=== PATIENT | male | born 1960 | race Caucasian/White ===

== ENCOUNTER → 2020-03-11 09:03 | Outpatient (CLI) | payer OTHER, SELFPAY ==
[2020-03-11 10:01] LABS: COVID19 -Nasal RAPID Negative (Negative)
== END ==
PROVIDERS: Visit Provider Physician Assistant
DX: Z20.822 Contact with and (suspected) exposure to COVID-19 (principal)
CPT/HCPCS: 87635

== ENCOUNTER 2020-03-13 11:23 | Day surgery (SDC) | payer OTHER, SELFPAY ==
--- NOTE | 2020-03-13 | PATH_ITS ---
[facility] Accession Number: [id number] . 01 Material submitted: . PART A: colon - ASCENDING COLON POLYP PART B: colon - TRANSVERSE COLON POLYP PART C: sigmoid colon - SIGMOID COLON POLYP . 02 Diagnosis: A. Ascending Colon Polyp: Tubular adenoma. . B. Transverse Colon Polyp: Tubular adenoma. . C. Sigmoid Colon Polyp: Portions of hyperplastic polyp x2. MRV 03/15/2020 1039 Local . 02 Electronically signed: . Dede Baez MD, Pathologist NPI- [id number] . 01 Gross description: . Part A: ASCENDING COLON POLYP: Received in formalin is 1 fragment(s) of beth, soft tissue measuring 0.3 x 0.3 x 0.3 cm submitted entirely in 1 cassette(s) Part B: TRANSVERSE COLON POLYP: Received in formalin is 1 fragment(s) of beth, soft tissue measuring 0.3 x 0.3 x 0.2 cm submitted entirely in 1 cassette(s) Part C: SIGMOID COLON POLYP: Received in formalin are 2 fragment(s) of beth, soft tissue measuring 0.2 x 0.2 x 0.1 cm to 0.5 x 0.3 x 0.2 cm submitted entirely in 1 cassette(s) /KUNAL 03/14/2020 1852 Local . 02 Pathologist provided ICD-10: K63.5, Z12.11 . 02 CPT . 363107, 991139, 938593 Performed at: 01 [facility] [address] [id number] MD Marcelo Person MD Phone: [phone] [facility]formed at: [facility] [address] [place], [place] [id number] MD Michelle Nolan MD Phone: [phone]
[2020-03-13] MEDS: SODIUM CHLORIDE 0.9% 1,000 ML 70 ML IV (11:55)
[2020-03-13 11:57] VITALS: BP 166/96; PULSE 71; RESP 16; TEMP 36.4; O2SAT 100; BMI 21.8
[2020-03-13 12:06] VITALS: BP 145/93
--- NOTE | 2020-03-13 12:12 | PM.HP.1 ---
History of Present Illness History of Present Illness Date Patient Seen: 03/13/20 Time Patient Seen: 12:10 Chief complaint: SDC Narrative: Patient is a very pleasant 59-year-old male who presented for screening colonoscopy. His last colonoscopy was attempted at age 49 in he states he was unable to have a completed at that time. He did undergo a barium enema study. Patient History Medical History (Updated 03/13/20 @ 11:17 by Taylor Alas RN) Diabetes [place] on CPAP Family & Social History Social History: household members spouse Tobacco & Substance use: Smoking Status Never smoker alcohol intake current alcohol intake frequency a few times a month Substance Use Type does not use Meds Home Medications and Allergies Home Medications Medication Instructions Recorded Confirmed Type aspirin 81 mg PO DAILY 03/13/20 03/13/20 History dulaglutide [Trulicity] mg SUBCUT WEEKLY 03/13/20 History glimepiride 4 mg PO DAILY 03/13/20 03/13/20 History loratadine 10 mg PO DAILY 03/13/20 03/13/20 History losartan 25 mg PO DAILY 03/13/20 03/13/20 History metformin 500 mg PO DAILY 03/13/20 03/13/20 History Allergies Allergy/AdvReac Type Severity Reaction Status Date / Time No Known Drug Allergies Allergy Verified 03/13/20 11:39 Review of Systems Review of Systems ROS: Yes All systems reviewed with the patient and are negative except as otherwise documented Exam Vital Signs (past 8 hours): - 03/13/20 11:57 03/13/20 12:06 Temperature 97.6 F Pulse Rate 71 Respiratory Rate 16 Blood Pressure 166/96 H 145/93 H Pulse Oximetry 100 Oxygen Delivery Method Room Air Const General: cooperative, healthy appearing, comfortable and well developed Nutritional Appearance: well nourished Orientation: alert, awake and oriented x3 HENMT Head: normocephalic and atraumatic Resp Effort & Inspection: normal respiratory effort, able to speak in complete sentences and abnormal respiratory pattern Auscultation: clear to auscultation bilaterally Cardio Rate: regular rate Rhythm: regular rhythm Heart Sounds: S1 normal and S2 normal GI Palpation: soft Auscultation: normal bowel sounds Extrem Right lower extremity: no edema Left lower extremity: no edema Assessment & Plan Assessment & Plan narrative: 1. Screening colonoscopy with history of prior incomplete colonoscopy Colonoscopy today, further recommendations to follow
[2020-03-13] MEDS: MIDAZOLAM 5 MG/5 ML VIAL IV (12:29)
[2020-03-13] MEDS: fentaNYL 250 MCG/5 ML INJ IV (12:33)
[2020-03-13 12:52] VITALS: BP 131/76; PULSE 70; RESP 18; TEMP 36.3; O2SAT 95
--- NOTE | 2020-03-13 12:53 | P.OP.ENDO_ITS ---
Operative Date/Time/Diagnoses Date of procedure: 03/13/20 Time of procedure: 12:21 Procedure Notes Procedure in detail: Surgeon: Francheska Olvera DO Procedure: Colonoscopy with polypectomy Preoperative diagnosis: 1. Screening colonoscopy, history of incomplete colonoscopy Postoperative diagnosis: 1. Redundant colon 2. 3mm Ascending colon polyp 3. 2 mm transverse colon 4. 3 mm sigmoid colon 5. Scattered sigmoid diverticulosis 6. Grade 1 internal hemorrhoids Medications: Conscious sedation using 7 mg IV of Midazolam and 175 mcg IV of Fentanyl Preanesthesia Assessment An H and P was performed/updated and the Px?s ASA class is 2. The procedure was discussed in detail with the patient. The potential risks and complications including infection, bleeding, missed lesions, perforation, need for surgery in case of perforation, prolonged hospital stay, and were explained. A brief question and answer period was allotted and once all questions were answered, informed consent was obtained. The patient was brought back to the procedure room and placed on standard monitoring. The patient?s vital signs were monitored continuously throughout the entire procedure. Prior to starting, a timeout was performed to confirm the patient?s identity, allergies, medications, and procedure. Procedure in detail The patient was placed in left lateral decubitus position and once adequate sedation was obtained a ALLAN was performed. The digital rectal examination did not reveal any palpable lesions. The tip of the colonoscope was placed in the anal canal and advanced with some difficulty due to a redundant colon. Abdominal pressure was used to achieve passage all the way to the cecum which was identified by the appendiceal orifice and the ileocecal valve. Careful examination of all romero of the colon was performed with irrigation of any resi dual stool. A 2nd pass of the ascending colon was performed. 3 mm ascending colon polyp, removed with Jumbo forceps 2 mm transverse colon polyp removed with Jumbo forceps 3 mm sigmoid colon polyp removed with Jumbo forceps Scattered sigmoid diverticulosis Redundant colon Grade 1 internal hemorrhoids noted on retroflexion The patient tolerated the procedure well and will be brought back to the [facility] area to be discharged once criteria are met. The prep was judged to be good/excellent and adequate to identify polyps less than 6 mm. The withdrawal time was 11min. The total physician intraservice time was 25min. Complications There were no complications and estimated blood loss was minimal. Recommendations: Resume high-fiber diet Continue outPx medications Await pathology results Repeat colonoscopy based on pathology results An emergency contact number was given to the patient for any complications related to the procedure
[2020-03-13 12:57] VITALS: BP 119/71; PULSE 81; RESP 13; O2SAT 94
[2020-03-13 13:03] VITALS: BP 135/81; PULSE 70; RESP 17; TEMP 36.7; O2SAT 95
--- NOTE | 2020-03-13 13:08 | SUR.PHASEII ---
report to JOSH Breaux. Pt in stable condition in phase 2
[2020-03-13 13:29] VITALS: BP 117/78; PULSE 71; RESP 15; TEMP 36.1; O2SAT 98
== END 2020-03-13 13:33 | disposition home or self-care (01) ==
PROVIDERS: PCP Family Medicine; Referring Provider Student in an Organized Health Care Education/Training Program; Visit Provider Student in an Organized Health Care Education/Training Program
PROC: 0DJD8ZZ Inspection of Lower Intestinal Tract, Via Natural or Artificial Opening Endoscopic (ICD-10-PCS; CPT 45378; principal; 2020-03-13 12:30)
DX: Z12.11 Encounter for screening for malignant neoplasm of colon (principal); K57.30 Diverticulosis of large intestine without perforation or abscess without bleeding; K64.0 First degree hemorrhoids; D12.2 Benign neoplasm of ascending colon; D12.3 Benign neoplasm of transverse colon
CPT/HCPCS: 45380; J2250; J3010

== ENCOUNTER → 2023-03-09 14:49 | Outpatient (CLI) | payer OTHER, SELFPAY ==
[2023-03-09 17:14] LABS: Add Manual Diff / Slide Review NO; Basophils Absolute Auto 0 /uL (0-100); Basophils Percent Auto 0.5 % (0-2); Eosinophils Absolute Auto 200 /uL (0-450); Eosinophils Percent Auto 3.5 % (2-4); Hematocrit 48.8 % (41-53); Lymphocytes Absolute Auto 2000 /uL (1100-4500); Lymphocytes Percent Auto 29.6 % (25-40); Mean Corpuscular HGB Conc 34.9 % (30-36); Mean Corpuscular Hemoglobin 31.5 PG (26-34); Mean Corpuscular Volume 90.4 fL (80-100); Monocytes Absolute Auto 500 /uL (0-900); Monocytes Percent Auto 7.7 % (3-14); Neutrophils Absolute Auto 4000 /uL (1500-7000); Neutrophils Percent Auto 58.7 % (50-75); Platelet Count 205 X10^3/uL (150-400); Red Blood Cell Count 5.39 X10^6/uL (4.5-5.9); Red Cell Distribution Width 13.4 % (11.6-14.8); White Blood Cell Count 6.8 X10^3/uL (4.5-11.0)
[2023-03-09 17:23] LABS: Hemoglobin A1C% w Est Avg Glu 7.2 % (4.0-6.0)
[2023-03-09 17:33] LABS: Albumin 4.7 g/dL (3.5-5.0); BUN Creatinine Ratio 21.6 (6-22); Blood Urea Nitrogen 16 mg/dL (9-20); Calcium 10.3 mg/dL (8.4-10.2); Carbon Dioxide 24 mmol/L (22-32); Chloride 101 mmol/L (98-107); Estimated Glomerular Filt Rate > 60 mL/min (>60); Glucose 98 mg/dL (80-110); HEMOLYSIS < 15 (0-50); Potassium 4.1 mmol/L (3.4-5.1); Sodium 137 mmol/L (137-145)
[2023-03-09 17:40] LABS: Prealbumin 34.4 mg/dL (17.6-36.0)
[2023-03-09 17:50] LABS: Vitamin D 25 Hydroxy (D3) 53.6 ng/mL (30.0-100.0)
[2023-03-11 03:14] LABS: Fructosamine 278 umol/L (0-285)
== END ==
PROVIDERS: PCP Family Medicine; Referring Provider Orthopaedic Surgery Adult Reconstructive Orthopaedic Surgery; Visit Provider Orthopaedic Surgery Adult Reconstructive Orthopaedic Surgery
DX: Z01.818 Encounter for other preprocedural examination (principal); R77.0 Abnormality of albumin; E55.9 Vitamin D deficiency, unspecified; Z01.812 Encounter for preprocedural laboratory examination; R73.9 Hyperglycemia, unspecified; E74.19 Other disorders of fructose metabolism
CPT/HCPCS: 36415; 80048; 82040; 82306; 82985; 83036; 84134; 85025; 93005; 93010

== ENCOUNTER 2023-04-30 11:50 | Day surgery (SDC) | payer OTHER, SELFPAY ==
[2023-04-30] VITALS (10 sets, daily range): BP systolic 92–160; BP diastolic 55–92; PULSE 78–91; RESP 14–20; TEMP 35.9–36.6; O2SAT 93–99
--- NOTE | 2023-04-30 | DI.RAD.S_ITS ---
PROCEDURE: XR HIP W PEL IF DONE RT 2V INDICATIONS: RT HIP ANTERIOR TECHNIQUE: AP pelvis with lateral view(s) of the right hip(s). COMPARISON: [facility], CR, XR PELVIS WITH LATERAL HIP RIGHT, 11/10/2022, 9:14. FINDINGS: Bones: Right hip arthroplasty. No periprosthetic lucency to suggest loosening or infection. No fractures or dislocations. Pelvic ring appears intact. No suspicious bony lesions. Soft tissues: The visualized bowel gas pattern is normal. No suspicious soft tissue calcifications. Vasectomy clips. IMPRESSION: Satisfactory appearance of the right hip arthroplasty. Dictated by: Sharif Cabrera M.D. on 04/30/2023 at 17:07 Approved by: Sharif Cabrera M.D. on 04/30/2023 at 17:08
--- NOTE | 2023-04-30 06:00 | DI.RAD.S_ITS ---
PROCEDURE: XR HIP W PEL IF DONE RT 2V TECHNIQUE: Fluoroscopic guidance utilized for a right hip arthroplasty. COMPARISON: None. FINDINGS: Fluoroscopic images submitted for a right hip arthroplasty. Please see operative note for further discussion. IMPRESSION: Fluoroscopic guidance. Dictated by: Stanley Grace M.D. on 05/03/2023 at 9:17 Approved by: Stanley Grace M.D. on 05/03/2023 at 9:17
[2023-04-30] MEDS: LACTATED RINGERS 1,000 ML 42 ML IV ×2 (12:38→14:35)
[2023-04-30] MEDS: MELOXICAM 7.5 MG TABLET PO (12:40)
[2023-04-30] MEDS: ACETAMINOPHEN 325 MG TABLET 975 MG PO (12:40)
[2023-04-30 13:03] LABS: Add Manual Diff / Slide Review NO; Basophils Absolute Auto 0 /uL (0-100); Basophils Percent Auto 0.4 % (0-2); Eosinophils Absolute Auto 300 /uL (0-450); Eosinophils Percent Auto 4.7 % (2-4); Hematocrit 46.5 % (41-53); Hemoglobin 16.2 g/dL (13.5-17.5); Lymphocytes Absolute Auto 1900 /uL (1100-4500); Lymphocytes Percent Auto 31.1 % (25-40); Mean Corpuscular HGB Conc 34.7 % (30-36); Mean Corpuscular Hemoglobin 31.5 PG (26-34); Mean Corpuscular Volume 90.7 fL (80-100); Monocytes Absolute Auto 700 /uL (0-900); Monocytes Percent Auto 10.9 % (3-14); Neutrophils Absolute Auto 3200 /uL (1500-7000); Neutrophils Percent Auto 52.9 % (50-75); Platelet Count 187 X10^3/uL (150-400); Red Blood Cell Count 5.13 X10^6/uL (4.5-5.9); Red Cell Distribution Width 13.3 % (11.6-14.8); White Blood Cell Count 6.1 X10^3/uL (4.5-11.0)
[2023-04-30 13:07] LABS: Prothrombin Time 11.7 SECONDS (9.4-12.5)
[2023-04-30 13:12] LABS: BUN Creatinine Ratio 20.8 (6-22); Blood Urea Nitrogen 16 mg/dL (9-20); Calcium 9.3 mg/dL (8.4-10.2); Carbon Dioxide 30 mmol/L (22-32); Chloride 104 mmol/L (98-107); Estimated Glomerular Filt Rate > 60 mL/min (>60); Glucose 134 mg/dL (80-110); HEMOLYSIS < 15 (0-50); Potassium 3.9 mmol/L (3.4-5.1); Sodium 139 mmol/L (137-145)
--- NOTE | 2023-04-30 13:25 | PM.PREOP ---
Pre-operative Note Interval Note History & Physical reviewed/Exam performed by Physician: Yes Changes to H&P: No
[2023-04-30] MEDS: CEFAZOLIN 2 GM/100 ML PREMIX 100 ML IV (14:15)
[2023-04-30] MEDS: TRANEXAMIC ACID 1,000 MG VIAL 1000 MG INJ ×2 (14:20→15:44)
--- NOTE | 2023-04-30 14:32 | SUR.OPER ---
Supine on padded [place] table with bilateral legs secured in padded positioning boots and suspended in positioning spars, operative leg in traction per surgeon. Head on one pillow. Both Arms on secured on padded armboards <90 degrees abduction. Padded perineal post in place per surgeon.
[2023-04-30] MEDS: ROPIVACAINE/EPI/CLONIDINE/KET 50 ML SYRINGE INJ (14:36)
--- NOTE | 2023-04-30 16:50 | PM.OP.1 ---
Operative Date/Time/Diagnoses Date of procedure: 04/30/23 Pre-op diagnosis: Right hip arthritis Post-op diagnosis: same Procedure & Clinicians Procedure: Right total hip arthroplasty (14092) Same procedure as scheduled: Yes Surgeon: Naresh Cary Chemical Sprayer: Annmarie Rehman Anesthesia Type: Spinal and Local Operative Notes Estimated Blood Loss (mL): 500 Procedure in detail: Implants: Depuy Total Hip Arthroplasty: Depuy Christmas Gription size 62 cup? Depuy [Actis] femoral stem size 8 high offset? 36 mm +5 ceramic femoral head? Procedure Summary: 63-year-old male who is 66 in tall and 265 lb. He has a rather muscular body habitus, as tape was not required to retract his pannus during the procedure. Based on his muscular body habitus I performed successfully releases to allow adequate exposure during the procedure. I utilized the TFL release during my initial approach and released the conjoined tendon in order to adequately elevate the femur. He had good stability, leg length, offset with initial trials of the templated implant sizes so these were utilized. Procedure in Detail: This patient was seen preoperatively and evaluated for hip pain which was refractory to numerous nonoperative treatment modalities. Their hip pain correlated with radiographic changes demonstrating significant degeneration in the hip joint. The risks and benefits of continued nonoperative management versus operative management were discussed at length and all of the patient?s questions were answered. Additional educational materials providing further details beyond our discussion in clinic were provided via a publicly available patient education video which included the incidence of medical complications associated with total hip arthroplasty, reasons for revision following total hip arthroplasty, and patient satisfaction rates following total hip arthroplasty. That video can be accessed at [email or web address] . With this understanding of the risks inherent to the procedure, the patient elected to move forward with operative management. Following preoperative optimization, the patient was scheduled for surgery. The patient was met in the preoperative holding area the day of the procedure and all questions were answered. The patient?s nares were swabbed with betadine in order to decolonize them from MRSA. Informed consent was signed and the operative limb was marked with indelible ink.? The patient was brought back to the operating room where anesthesia was induced. The patient was transferred to the [place] table and all bony prominences were padded. The operative site was prepped and draped in the usual sterile fashion. Prior to incision, tranexamic acid and cefazolin were administered. Operative templating images were displayed demonstrating the anticipated implant sizes and correct operative extremity. A timeout procedure was performed verifying the patient?s identity, medical comorbidities, allergies, relevant medications, anesthesia type and the surgical plan. All present were in agreement. The assistance of a physician family assistant was required for positioning, room setup, soft tissue retraction and wound closure. Without this assistance, the procedure would have been significantly more challenging and time consuming.?? A direct anterior approach to the hip was utilized. This was performed with a longitudinal incision through a Heuter interval. The incision was planned 2 cm distal and 2 cm lateral to the ASIS extending towards the lateral patella, in line with the muscle body of the TFL. Following incision, the subcutaneous tissue was dissected while taking care to avoid injury to the lateral femoral cutaneous nerve. The fascia overlying the TFL was identified by dissecting off the overlying fat and identifying perforating vessels to the TFL. The TFL fascia was incised and dissected away from the medial border of the TFL. The fascial incision was extended up near the insertion of the TFL on the ilium and dissected laterally to perform a TFL released. A cobra retractor was placed over the superior femoral neck between the abductors and the hip capsule and used to reflect the TFL laterally. A [place] self-retainer was then placed in the distal aspect of the wound between the TFL and the rectus femoris. This was tensioned to open up the direct anterior interval and the lateral circumflex vessels were identified and coagulated using electrocautery. The floor of the TFL fascia was incised, exposing the pericapsular fat overlying the hip capsule. A second cobra retractor was placed on the inferior femoral neck. A double-bent soft tissue retractor was placed on the anterior wall of the acetabulum and used to tension the reflected head of rectus femoris, which was then released in order to limit soft tissue tension. A capsulotomy was made in the midline of the anterior hip capsule in line with the femoral neck ending at the vastus tubercle. The double-bent retractor was removed in order to limit the amount of time that a soft tissue retractor remained on the anterior wall and protect the femoral nerve. Tag stitches were placed in the superior and inferior leaflets of the hip capsule. An Josr soft tissue retractor was introduced over the tag stitches and tensioned in the interval between the rectus femoris and the TFL in order to retract and protect those muscles. The cobra retractors were replaced intracapsularly, with one over the superior neck in the pocket created by the base of the greater trochanter and the other on the femoral head. The capsulotomy was extended laterally to the base of the greater trochanter and medially to the lesser trochanter. This required externally rotating the hip. Once the lesser trochanter had been identified, a neck cut was planned according to measurements from preoperative templating. A ruler was cut at the length measured between the superior aspect of the lesser trochanter and the collar of the prosthesis. This line was extended towards the inferior aspect of the lateral cobra retractor to plan a cut which would leave minimal residual femoral neck laterally. The neck was cut at 60 degrees of external rotation along that line. A second cut was performed to remove a large napkin ring and facilitate head extraction. The napkin ring cut and femoral head were removed.?? A broad anterior wall retractor was placed between the labrum and the anterior capsule so that the anterior capsule would prevent capturing and pinching the femoral nerve anteriorly. An additional retractor was placed on the posterior wall. External rotation and traction were applied through the [place] table so that the cut surface of the femoral neck would not restrict access to the acetabulum. The labrum was excised sharply and the pulvinar was excised with electrocautery to limit bleeding from branches of the obturator artery. Acetabular reamers were selected based on preoperative templating and measurements of the excised femoral head. These were introduced into the acetabulum. Fluoroscopy was utilized to replicate a standing AP pelvis radiograph by centering over the pelvis, rotating until there was appropriate symmetry between the obturator foramen, and introducing caudal tilt to match the position of the pubic symphysis relative to the sacrococcygeal junction according to the patient?s anatomy. Fluoroscopy was utilized to ensure appropriate reaming depth. Once satisfied with the reaming depth corresponding to the preoperative template and the pinch fit between the columns, an appropriate sized acetabular cup was selected which would provide 1 mm of press-fit. This cup was introduced and manipulated until appropriate abduction and anteversion angles were obtained with careful attention to appropriate abduction and anteversion angles as evaluated by the position of the cup relative to the anterior and posterior romero of the acetabulum and the AP fluoroscopy which recreated the patient?s standing radiograph. The cup was impacted into place. Peripheral osteophytes were removed. The acetabular liner was then placed with care to ensure locking of the locking mechanism.? Attention was then turned to the femur. All retractors were removed, traction was released, a retractor was placed in the interval between the hip capsule and the gluteus minimus, and the hip was externally rotated to 90 degrees. Traction was applied through the [place] table to tension the lateral capsule and this was released using electrocautery. Traction was released and a [place] hook was placed posteriorly around the proximal femur at the level of the vastus ridge. The table height was lowered in order to restrict the tension on the anterior structures during hip hyperextension to limit the risk of femoral nerve palsy. With traction off and the hip at 90 degrees of external rotation, the hip was hyperextended and adducted while manually elevating the femur away from the acetabulum with the [place] hook to ensure it would not be caught behind the greater trochanter. An asymmetric retractor was placed over the calcar and a broad double-pronged retractor was placed over the greater trochanter. The tag stitch capturing the lateral leaflet of the capsule was moved to the medial side, leaving the conjoined and piriformis tendons isolated in the face of the greater trochanter. The hip was externally rotated and elevated. A release of the conjoined tendon was necessary in order to obtain adequate exposure for broaching. The canal was opened with an opening broach and a rasp was used to remove cancellous bone. A rongeur was used to remove the residual lateral bone at the base of the greater trochanter to avoid placing the stem in varus. The femur was then broached to the appropriate sized stem yielding good rotational fit and fill of the canal as well as appropriate version of the stem trial. Neck and head trials were placed, all retractors were removed and the hip was returned to neutral abduction and extension. I then reduced the hip. An AP pelvis fluoroscopic image matching the preoperative standing radiograph was obtained with both lesser trochanters visible and both hips in 40 degrees of external rotation. This demonstrated appropriate leg length and offset. An AP hip fluoroscopic image was obtained with the hip in neutral rotation which demonstrated appropriate canal fill. Hip stability was evaluated with 90 degrees of external rotation and a 45 degree drop test which demonstrated appropriate stability. The hip was dislocated and I returned to the broaching position. The definitive stem was placed and the trunnion was cleaned and dried. I placed a ceramic head onto the trunnion and impacted it into place on the [place] taper.?? All retractors were removed and the hip was reduced. A dilute mixture of betadine and peroxide was used to bathe the soft tissues during final fluoroscopic assessment. Appropriate component positioning was confirmed on an AP pelvis radiograph with the operative and nonoperative legs in 40 degrees of external rotation, evaluating leg length and offset. Appropriate stem fill was evaluated on an AP hip radiograph with the operative leg in neutral rotation. No fractures were identified on these radiographs. Stability was satisfactory with a 90 degree external rotation test as well as a 45 degree drop test. The hip was copiously irrigated with pulse lavage. The capsule was closed with absorbable interrupted suture. The TFL fascia was closed with barbed suture while carefully protecting the lateral femoral cutaneous nerve from entrapment. A mixture of Ropivacaine, Epinephrine, Clonidine and Toradol was infiltrated throughout the soft tissues. The skin was closed with 2-0 and 3-0 sutures. Surgical glue was applied and a soft dressing was placed.??The sponge, instrument and needle counts were reported as being correct at the end of the case.??No obvious complications occurred. The patient was transferred from the [place] table back to a stretcher. The patient emerged from anesthesia without difficulty and was taken to the PACU in a stable condition.? Plan for aftercare: Anterior hip precautions Weightbearing as tolerated Mobilization as soon as the patient has recovered from anesthesia. If physical therapists are unavailable at the time the patient is ready to ambulate, then nursing staff should help patient ambulate Resume home Eliquis upon discharge. Aspirin only while in the hospital Multimodal pain regimen with no IV opioids ordered Anticipate discharge home tomorrow following physical therapy Follow up at [facility] in 2 weeks Detailed postoperative instructions available at [email or web address]
--- NOTE | 2023-04-30 17:11 | P.PN_ITS ---
Subjective Subjective Interval history: Patient is seen postoperatively. Resting comfortably. No acute distress. Ice machine in place over operative site. Pain well controlled. Flexing extending hallux and ankle and knee. Toes warm well perfused. Surgical dressing clean dry and intact. Plan for admission overnight and discharge tomorrow morning following ambulation with physical therapy. I will have him on sliding scale insulin while he is in the hospital. He can restart his Eliquis the morning after he discharges from the hospital. Presuming he does in fact discharge tomorrow this would mean restarting his Eliquis Wednesday morning. Exam Vital Signs (past 8 hours): - 04/30/23 12:18 04/30/23 16:12 04/30/23 16:17 Temperature 97.9 F 98 F Pulse Rate 78 81 85 Respiratory Rate 16 14 14 Blood Pressure 160/92 H 96/63 92/66 Pulse Oximetry 99 94 96 Oxygen Delivery Method Room Air Room Air Room Air Oxygen Flow Rate 04/30/23 16:22 04/30/23 16:37 04/30/23 17:09 Temperature 96.7 F L Pulse Rate 86 80 83 Respiratory Rate 14 14 20 Blood Pressure 95/63 104/68 109/61 Pulse Oximetry 95 93 95 Oxygen Delivery Method Room Air Room Air Oxygen Flow Rate 0 Oxygen Delivery Method Room Air Oxygen Flow Rate 0 Objective Labs 04/30/23 12:30 04/30/23 12:30 Labs: Laboratory Results - last 24 hr 04/30/23 04/30/23 12:10 12:30 WBC 6.1 RBC 5.13 Hgb 16.2 Hct 46.5 MCV 90.7 MCH 31.5 MCHC 34.7 RDW 13.3 Plt Count 187 Neut % (Auto) 52.9 Lymph % (Auto) 31.1 [facility] % (Auto) 10.9 Eos % (Auto) 4.7 H Baso % (Auto) 0.4 Neut # (Auto) 3200 Lymph # (Auto) 1900 [facility] # (Auto) 700 Eos # (Auto) 300 Baso # (Auto) 0 PT 11.7 INR 1.0 Sodium 139 Potassium 3.9 Chloride 104 Carbon Dioxide 30 BUN 16 Creatinine 0.77 Estimated GFR > 60 BUN/Creatinine Ratio 20.8 Glucose 134 H Calcium 9.3 Blood Type O Positive Antibody Screen Negative Crossmatch See Detail [facility] Medical History (Updated 04/23/23 @ 12:27 by Lisa De La Garza RN) CAD (coronary artery disease) Osteoarthritis GERD (gastroesophageal reflux disease) Afib HLD (hyperlipidemia) HTN (hypertension) TIA (transient ischemic attack) (05/2021) FLOERNCE on CPAP Diabetes (~2017) Surgical History (Updated 04/23/23 @ 10:15 by Lisa De La Garza RN) Hx of appendectomy Hx of heart artery stent (10/24/21) Social History household members: spouse Smoking Status: Never smoker alcohol intake: current
[2023-04-30] MEDS: LACTATED RINGERS 1,000 ML 125 ML IV ×2 (17:34→17:45)
--- NOTE | 2023-04-30 18:30 | PC.NURSE ---
Pt arrived to floor @ 1702 A/O Denies discomfort Aquacell dsg to right hip CDI. IVF infusing as per orders. \ Ice applied to area Call light w/in reach, Pt calls appropriately for needs Continue w/plan of care.
[2023-04-30] MEDS: CEFAZOLIN VIAL 3 GM in SODIUM CHLORIDE 0.9% 100 ML IV (22:36)
[2023-04-30] MEDS: ASPIRIN EC 81 MG TABLET PO (22:36)
[2023-04-30] MEDS: METFORMIN XR 500 MG TABLET PO (22:37)
[2023-04-30] MEDS: ATORVASTATIN 20 MG TABLET 80 MG PO (22:37)
[2023-04-30] MEDS: DOCUSATE 100 MG CAPSULE PO (22:37)
[2023-04-30] MEDS: ACETAMINOPHEN 325 MG TABLET 650 MG PO (22:38)
[2023-04-30] MEDS: IBUPROFEN 600 MG TABLET PO (22:39)
[2023-05-01 00:17] VITALS: BP 115/67; PULSE 82; RESP 18; TEMP 36.9; O2SAT 92
[2023-05-01 04:23] LABS: Hematocrit 38.4 % (41-53); Hemoglobin 13.5 g/dL (13.5-17.5)
[2023-05-01 04:38] VITALS: BP 106/69; PULSE 78; RESP 18; TEMP 36.4; O2SAT 95
[2023-05-01] MEDS: ACETAMINOPHEN 325 MG TABLET 650 MG PO (05:05)
[2023-05-01] MEDS: IBUPROFEN 600 MG TABLET PO (05:05)
[2023-05-01] MEDS: CEFAZOLIN VIAL 3 GM in SODIUM CHLORIDE 0.9% 100 ML IV (07:35)
[2023-05-01 07:55] VITALS: BP 127/79; PULSE 87; RESP 20; TEMP 36.3; O2SAT 95
[2023-05-01] MEDS: ASPIRIN EC 81 MG TABLET PO (08:16)
[2023-05-01] MEDS: METFORMIN XR 500 MG TABLET PO (08:16)
[2023-05-01] MEDS: DOCUSATE 100 MG CAPSULE PO (08:16)
--- NOTE | 2023-05-01 09:25 | PT.IIE ---
Current Diagnoses Unilateral primary osteoarthritis, right hip (04/30/23) Surgery Performed Operation Date: 04/30/23 13:45 Actual Procedures p Total Hip Arthroplasty/Anterior Approach(Right) - Naresh Cary MD Surgical History (Last Updated 04/23/23 @ 10:15 by Lisa De La Garza, RN) Hx of appendectomy Hx of heart artery stent (10/24/21) Medical History (Last Updated 04/23/23 @ 12:27 by Lisa De La Garza RN) Afib CAD (coronary artery disease) Diabetes (~2017) GERD (gastroesophageal reflux disease) HLD (hyperlipidemia) HTN (hypertension) [place] on CPAP Osteoarthritis TIA (transient ischemic attack) (05/2021) Physical Therapy Inpatient Evaluation/Re-Eval M1 PT/OT-IP Prior Functional Status Start: 05/01/23 08:34 Freq: NEEDED Status: Active Protocol: Document 05/01/23 09:11 AMB (Rec: 05/01/23 09:25 AMB [id number]) Medical Review Prior Functional Status Medical History Reviewed Yes Diet/Fluid Consistency Regular Communication WFL Activities of Daily Living and IADL's Had been using sock aid for past 8 months prior to hip replacement Social History Household Members spouse Living Arrangements House Number of Floors (Floors) One Floor Number of Stairs To Enter/Railing? 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 [employer] Employed Additional Social History Comment needs to walk about 100 feet from car to get into house M2 PT-IP Current Condition Start: 05/01/23 08:34 Freq: NEEDED Status: Active Protocol: Document 05/01/23 09:11 AMB (Rec: 05/01/23 09:25 AMB [id number]) Physical Therapy Current Condition Current Condition Evaluation Date 05/01/23 Treatment Diagnosis R anterior WIN Onset Date 04/30/23 M3 PT-IP Subjective Start: 05/01/23 08:34 Freq: NEEDED Status: Active Protocol: Document 05/01/23 09:11 AMB (Rec: 05/01/23 09:25 AMB [id number]) Subjective Physical Therapy Visit Type Type Initial Evaluation Visit Start Time 08:30 Visit Stop Time 09:00 Physical Therapy Visit Comments Patient Comments Ready to get up Patient Goals Go home Therapy Pain Assessment Pain When Pain Assessed At Rest Pain Present Pain Present Pain Reported Location right hip Intensity 3 Scale Used Numeric (0 - 10) Pain Management Techniques Apply Cold M4 PT-IP Mobility and Gait Start: 05/01/23 08:34 Freq: NEEDED Status: Active Protocol: Document 05/01/23 09:11 AMB (Rec: 05/01/23 09:25 AMB [id number]) PT-Bed Mobility Assessment Rolling Type of Rolling Roll to Left Level of Assist Standby Assistance Supine to Sit Supine to Sit Standby Assistance Sit to Supine Sit to Supine Standby Assistance Scooting Scooting to Edge of Bed Standby Assistance PT-Transfer Assessment Sit to and From Stand Sit to and from Stand Standby Assistance Equipment Transfer Assistive Device Gait Belt,Front Wheeled Walker Transfers Transfer Destination Bed Transfer Technique Stand Step Pivot Transfer Ability Level of Assist Standby Assistance Comments Mobility Comments Jeovany was able to slowly and carefully move from bed with HOB elevated to sitting on edge of bed with SBA. Good understanding of precautions. Gait Assessment Gait Gait Assistance Required: Contact Guard Assist Distance (Feet) 75 Able to Maintain Weight Bearing Status Yes During Gait Assistive Devices Assistive Device Gait Belt,Front Wheeled Walker Gait Deviations General Gait Pattern Antalgic,Decreased Stride Length Factors Limiting Gait Function Factors Limiting Gait Function Decreased Strength,Limited Range of Motion,Pain Comments Gait Comments Jeovany ambulates with heavy use of the FWW and small step length 75' in hallway and around room. Was able to stand to urinate at toilet independently. Educated in car transfer (he will be getting into a pickup), tub transfer, toilet transfer (has a high toilet), and getting up 1 step into house. GEOPHYSICAL SUPPORT SPECIALIST in room to get pt back to bed when treatment session ended. PT-Balance Assessment Sitting Balance and Reactions Static Sitting Balance Ability Normal Dynamic Sitting Balance Ability Normal Standing Balance and Reactions Static Standing Balance Ability Good Dynamic Standing Balance Ability Fair M5 PT-IP Objective Assessments Start: 05/01/23 08:34 Freq: NEEDED Status: Active Protocol: Document 05/01/23 09:11 AMB (Rec: 05/01/23 09:25 AMB [id number]) Orientation Orientation/Cognition Level of Alertness Alert Gross Range of Motion Lower Extremity ROM Assessment Right Impaired Strength Lower Extremity Strength Hip 2 Knee 3 Ankle 5 Sensation Assessment Sensation Gross Sensation WNL M6 PT-IP Treatment Start: 05/01/23 08:34 Freq: NEEDED Status: Active Protocol: Document 05/01/23 09:11 AMB (Rec: 05/01/23 09:25 AMB [id number]) Physical Therapy Treatment Exercises Exercises Ankle Pumps,Gluteal Sets,Heel Slides Education Education Provided Precautions,Weight Bearing Status,Safety M7 PT-IP Assessment and Plan Start: 05/01/23 08:34 Freq: NEEDED Status: Active Protocol: Document 05/01/23 09:11 AMB (Rec: 05/01/23 09:25 AMB [id number]) PT Summary Assessment and Plan Potential Rehabilitation Potential Good Status of Condition at Evaluation Stable Summary Impairments Pain,ROM,Strength,Balance,Bed Mobility,Transfers,Gait, Activity Tolerance Assessment Summary Jeovany had R WIN anterior yesterday. He was able to perform all bed mobility with SBA and ambulated 75feet with CGA with slow careful steps. No sx of nausea/dizziness. He has prepared well for his surgery and has a support person at home, he should be able to safely discharge when medically stable. Goals Bed Mobility Goal Independent Transfer Goal Independent Gait Goal Standby Assistance Gait Distance 100 Days to Meet Goals 1 Frequency of Treatment Frequency Of Treatment Twice a Day Treatment Plan Physical Therapy Treatment Plan Bed Mobility Training,Transfer Training,Gait Training, Therapeutic Exercise,Balance Retraining,Neuromuscular Re-ed Precautions Anterior Hip Precautions No Hip Extension,No Hip External Rotation Weight Bearing Status Weight Bearing Status Weight Bear as Tolerated Recommendations To Nursing Amount of Assist Needed 1 Person Assist Discharge Recommendations PT Discharge Recommendations Home with Assistance Transportation Needs at Discharge Private Vehicle
--- NOTE | 2023-05-01 10:00 | PM.DS.1 ---
History of Present Illness History of Present Illness Chief complaint: right WIN Narrative: Jeovany is a pleasant 63 year old male who is POD#1 s/p right anterior WIN by Dr. Cary. Jeovany reports he is doing well overall, pain is mild and has been controlled with APAP and IBU only. Lives at home with family so he will have support at home during his immediate post-op recovery. Has ice machine at home, no post-op meds at home. Has post-op PT set up with our [facility] PT office. [facility] and did [facility] today with success, he feels ready to be d/c to home and feel confident in his ambulation. Denies fever, chills, chest pain, SOB, nausea, vomiting. Operative Date/Time/Diagnoses Date of procedure: 04/30/23 Pre-op diagnosis: Right hip arthritis Post-op diagnosis: same Procedure & Clinicians Procedure: Right total hip arthroplasty (03097) Same procedure as scheduled: Yes Surgeon: Naresh Cary Computer Engineering Technician: Annmarie Rehman Anesthesia Type: Spinal and Local Operative Notes Estimated Blood Loss (mL): 500 Procedure in detail: Implants: Depuy Total Hip Arthroplasty: Depuy Ronceverte Gription size 62 cup? Depuy [Actis] femoral stem size 8 high offset? 36 mm +5 ceramic femoral head? Discharge Providers Provider Discharge Date: 05/01/23 Primary care physician: Dustin FERNANDEZ Provider Consults: 04/23/23 12:26 Consult to Anesthesiology Routine Comment: Consulting Provider: Anesthesiologist Reason for consultation: Surgeon requested re: Cardiac history 04/30/23 06:00 Consult to Anesthesiology Routine Comment: Consulting Provider: Anesthesiologist Reason for consultation: Regional block for post operative pain control Has provider been notified: No 04/30/23 17:00 Consult to Discharge Planning Routine Comment: Consult to Discharge Planning Routine Comment: Consult to Occupational Therapy Evaluate & Treat Comment: Physician Instructions: Evaluate and treat Consult to Physical Therapy Evaluate & Treat Comment: Physician Instructions: post op WIN protocol Consult to Physical Therapy Evaluate & Treat Comment: Physician Instructions: post op WIN protocol Discharge provider: Annmarie Rehman PA-C Summary Hospital Course Discharge Diagnosis: right hip OA s/p R WIN Hospital Course: Uncomplicated hospital course Exam Vital Signs (past 8 hours): - 05/01/23 04:38 05/01/23 07:55 Temperature 97.5 F L 97.4 F L Pulse Rate 78 87 Respiratory Rate 18 20 Blood Pressure 106/69 127/79 Pulse Oximetry 95 95 Oxygen Flow Rate 0 0 Oxygen Delivery Method Room Air Oxygen Flow Rate 0 Narrative Exam Narrative: lying comfortably in bed with ice machine on his right hip during our interview today. Resp Effort & Inspection: normal respiratory effort and able to speak in complete sentences Cardio Rate: regular rate Other: Brisk capillary refill Skin Other: Clean and dry Aquacel dressing intact over the right anterior hip. Neuro Other: Sensation intact in bilateral lower extremities. There is a small area of sensory loss just lateral to the incision site. Extrem Other: Grossly normal alignment, no significant swelling or ecchymosis. 5/5 strength with DF, PF, EHL. Good right knee AROM with mild pain. Calves soft and non-tender. Objective Labs 05/01/23 04:09 04/30/23 12:30 Labs: Laboratory Results - last 24 hr 04/30/23 04/30/23 05/01/23 12:10 12:30 04:09 WBC 6.1 RBC 5.13 Hgb 16.2 13.5 Hct 46.5 38.4 L MCV 90.7 MCH 31.5 MCHC 34.7 RDW 13.3 Plt Count 187 Neut % (Auto) 52.9 Lymph % (Auto) 31.1 Brooke % (Auto) 10.9 Eos % (Auto) 4.7 H Baso % (Auto) 0.4 Neut # (Auto) 3200 Lymph # (Auto) 1900 Brooke # (Auto) 700 Eos # (Auto) 300 Baso # (Auto) 0 PT 11.7 INR 1.0 Sodium 139 Potassium 3.9 Chloride 104 Carbon Dioxide 30 BUN 16 Creatinine 0.77 Estimated GFR > 60 BUN/Creatinine Ratio 20.8 Glucose 134 H Calcium 9.3 Blood Type O Positive Antibody Screen Negative Crossmatch See Detail [facility] Medical History (Updated 04/23/23 @ 12:27 by Lisa De La Garza RN) CAD (coronary artery disease) Osteoarthritis GERD (gastroesophageal reflux disease) Afib HLD (hyperlipidemia) HTN (hypertension) TIA (transient ischemic attack) (05/2021) [place] on CPAP Diabetes (~2018) Surgical History (Updated 04/23/23 @ 10:15 by Lisa De La Garza RN) Hx of appendectomy Hx of heart artery stent (10/24/21) Social History household members: spouse Smoking Status: Never smoker alcohol intake: current Discharge Assessment & Plan Assessment and Plan Assessment: Stable s/p R WIN Plan of Treatment: 1) Resume home Eliquis upon discharge. Aspirin only while in the hospital 2) Continue ice machine to the hip for pain control, continue APAP and IBU for pain control. Small Rx of Tramadol sent for pt to be taken PRN moderate-severe pain. 3) Weight bearing as tolerated, maintain anterior hip precautions. Continue to work on mobility with outpatient PT. 4) Keep dressing clean, dry and intact until 2 week post-op appointment. 5) Follow up at [facility] in 2 weeks for post-op appointment. All patients questions were answered and he is in agreement with the plan. Plan to d/c to home today with family. Discharge Plan Discharge Plan Patient Disposition: Home Provider Discharge Comment: Detailed postoperative instructions available at [email or web address] Discharge orders & Medications Discharge Orders: Discharge (Order); Ordered 05/01/23 Ordered By: Annmarie Rehman Prescriptions: New acetaminophen 325 mg Tablet 650 mg PO Q6H Qty: 90 1RF tramadol 50 mg Tablet 50 mg PO QID PRN (Reason: Pain, Moderate (4-6)) Qty: 15 0RF ibuprofen 600 mg Tablet 600 mg PO Q6H Qty: 90 0RF Continued metformin 500 mg tablet extended release 24 hr 500 mg PO BID loratadine 10 mg tablet 10 mg PO DAILY Trulicity 1.5 mg/0.5 mL pen injector 3 mg SUBCUT WEEKLY Patient Comments: Injects every Wednesday atorvastatin 80 mg Tablet 80 mg PO BEDTIME celecoxib 100 mg Capsule 100 mg PO DAILY fluticasone propionate 50 mcg/actuation [place],Suspension 1 spray INTRANASAL DAILY Rx Instructions: administer into each nostril Eliquis 5 mg Tablet 5 mg PO BID Jardiance 25 mg Tablet 25 mg PO QAM Follow up/Referrals: Provider,Dustin FERNANDEZ [Primary Care Provider] - Naresh Cary MD [Physician] - (Follow up as scheduled at [facility] in 2 weeks for post-op appointment.) Diet/Activity/Treatments Diet: Diet as Tolerated Activity: Weight-bearing as tolerated, maintain anterior hip precautions. Continue to work on proper mobilization with outpatient PT and at home. Cold/Heat Therapy: Ice to the hip for additional pain control. Skin/Wound/Dressing Care Report to your healthcare provider any signs of infection, such as:: chills, fever, night sweats, unusual drainage and unusual redness Dressing: Keep dressing clean, dry and intact until 2 weeks postop appointment. No soaking the incision site in pools or tubs. No topical creams to the incision site. If dressing becomes dirty or saturated please contact our office for a placement dressing. Visit Report/Discharge Packet Instructions: DI for Hip Replacement Stand Alone Forms: Patient Portal/API Discharge Data Primary Care Provider: Dustin Rossi Attending Provider: Naresh Cary VTE Deep Vein Thrombosis/Pulmonary Embolism Present on Admission: No
--- NOTE | 2023-05-01 10:49 | CM.DANOTE ---
DCP Assessment note Pt is a 63yo M here following right WIN with Dr. Cary on 04.30.23. PCP JIM Chan [employer] dickey and self pay RELAY ENGINEER reviewed EMR. Per ortho/PT, cleared for dc home with assistance. Per PT notes, pt has necessary equip at home for safe dc with spouse to assist. Per RN, no obvious CM needs. Spouse to transport home. Plan: anticipate home with spouse today. No identified barriers to dc home safely with spouse. CM team will continue to follow as needed. CHULA So Discharge Planning/Care Management CM Discharge Assessment Start: 05/01/23 10:47 Freq: Status: Active Protocol: Document 05/01/23 10:47 SL (Rec: 05/01/23 10:48 [id number]) Discharge Planning Assessment Assigned Cost Engineer CHULA Ac DPOA/Assigned Designee Name Latricia spouse Contact Information [phone] Advance Directives? Yes Advance Directives on File No History Provided By Patient,Medical Record Prior Living Arrangements House Household Members spouse Type of transporation used prior to Drives own vehicle admit Independent with ADL's Yes Is patient alert and oriented? Yes DME Already Rented / Owned Elevated Toilet Seat,FWW / Walker Discharge Plan Home Transportation Arrangement family in POV Referrals Initiated None needed Whiteboard Updated in Patient Room with No name and ext. # of Cost Engineer Review Status In Process Next Review Type Continued Stay Review Pre-Anesthesia Assessment Start: 04/23/23 09:50 Freq: Status: Complete Protocol: Document 04/23/23 09:50 CAB (Rec: 04/23/23 10:36 CAB [id number]) Pre-Anesthesia Assessment Preferred Name Shakir Patient Information Reviewed Via Phone Assessment Assessment Completed With Patient Diagnostic Results BMP/CMP,CBC,EKG Comment Labs/EKG @ [facility] 03/09/23 Primary Care Provider [facility] Seen Specialist in Last 12 Months Yes Specialist Seen Career Representative,Insurance Adviser, Orthopedist Primary Language Azerbaijani Preferred Language Azerbaijani Associate Dean Required No Height 198.12 cm Weight 117.934 kg Body Mass Index (BMI) 30.0 Hearing Ability Normal Visual Assist Glasses Dentition Type Teeth, Natural Present,Dental Implants Barriers to Learning None Hx Anesthesia Reactions No Hx Family Anesthesia Reaction No Hx Malignant Hyperthermia No Hx Blood Transfusions No Hx Blood Transfusion Reaction No Anesthesia Review Requested Yes: Surgeon requested re: Cardiac history Solar Energy Technician No alcohol intake current alcohol intake frequency a few times a month Smoking Status Never smoker Substance Use Type does not use Pain Present Pain Reported Musculoskeletal Symptoms Abnormal Gait,Back Pain,Joint Pain History of Falling (Recent or History of Yes ) Patient is completely paralyzed or No completely immobile Prosthesis or Orthotic Device Cane Mental Status Oriented to own ability Is patient on oxygen? No Does patient have BELLE/SOB No Hx Sleep Apnea Yes CPAP/BIPAP use prescribed and used routinely Will Bring CPAP/BIPAP DOS Yes Currently Taking a Beta [place] No Can You Climb a Flight of Stairs Without Yes SOB Hx Chest Pain No Hx SOB No Hx Syncope or Dizziness No Anti-Coagulant Therapy Yes: Eliquis-advised to hold 2 days prior per Cardiology Has a Career Representative Yes: Pre-op visit 11/09/[address] Caballero @ [facility] Cardiac Testing No Hx Pacemaker/ICD No Pacemaker Rep Required? No Cardiac Clearance Received Yes Comment Walks approx 1.5 miles multiple times a week Additional comment Cardiac records scanned and in surgery folder Diet Type At Home Regular Dysphagia No Gastrointestinal Symptoms Constipation,Diarrhea,Reflux Urinary Catheter Present No Hx Urinary Self Catheterization No Diabetes Yes HgbA1C 7.2 Date 03/09/23 Hx Drug Resistant Organism No Presence of External or Internal Medical Yes: Cardiac stent, CPAP Devices Received a COVID vaccine? Yes Received all doses? Yes Marital Status Lives With spouse Current Living Arrangements House Number of Floors (Floors) One Floor Support System Spouse Does the Patient Have Assistance After Yes Surgery Patient Discharge Plan Description Return Home Comment Pt advised same day surgery per surgeon Feels Safe in Current Environment Yes Been Physically Hurt or Threatened By a No Person in Current Environment Do you have thoughts of harming yourself None or others? Are you currently considering suicide? No Do you have a plan to hurt yourself or No Plan others? Do You Have Any Spiritual Beliefs That No May Affect Your HC Choices? Do You Have Any Cultural Practices That No May Affect Your HC Choices? Comment Carleen Who Can We Speak to About Patient's Care Family, friends Identifying Code for Release of Patient Declines to issue Information Health Care Proxy/Next of Kin Latricia () Health Care Proxy Emergency Contact Name Latricia () Emergency Contact Advance Directives? Yes Advance Directives on File No Requested Patient Bring Advanced Yes Directives DOS Power of Fitness And Wellness Instructor Yes Power of Fitness And Wellness Instructor Name Latricia () Power of Fitness And Wellness Instructor PAC Instructions Bring CPAP/BIPAP,Durable medical equipment,Medications to take/avoid,Nasal antibiotic ,No ETOH/petroleum product on skin DOS,NPO,Post-op transportation,Pre-surgical wash,Sensory aids,Sturdy shoes /comfortable clothes,Do not bring valuables and remove jewelry
--- NOTE | 2023-05-01 11:04 | PC.NURSE ---
Addendum entered by Mini Palacios R.N. 05/01/23 13:46: *Pt escorted by staff via W/C D/C in stable post op status Addendum entered by Mini Palacios R.N. 05/01/23 13:45: D/C instructions given Med for discomfort prior to D/C Pt escorted by staff to Original Note: Pt denies discomfort Aqua seal dsg CDI Amb. w/PT w/o incidence Orders for D/C received SL D/C intact by staff. Await transportation this afternoon. Call light w/in reach, Pt calls appropriately for needs, Continue w/plan of care.
== END 2023-05-01 13:47 | disposition home or self-care (01) ==
LOC: OR 11:51 → AC 11:52
PROVIDERS: Referring Provider Orthopaedic Surgery Adult Reconstructive Orthopaedic Surgery; Visit Provider Orthopaedic Surgery Adult Reconstructive Orthopaedic Surgery
PROC: (CPT 27130; principal; 2023-04-30 13:45)
DX: M16.11 Unilateral primary osteoarthritis, right hip (principal)
CPT/HCPCS: 27130; 36415; 73502; 76000; 80048; 82962; 85014; 85018; 85025; 85610; 86850; 86900; 86901; 97161; C1776; J0690; J2250; J2704; J3010